=== PATIENT | female | born 1935 | race Caucasian/White ===

== ENCOUNTER → 2016-12-14 | Outpatient (CLI) | payer MEDICARE, OTHER ==
[~2016-12-14] MED LIST: ALEVE220 MG PO; ASPIR-LOX325 MG PO; ASPIRIN 32325 MG/TAB PO; COLACE 100100 MG/CAP PO; CRESTOR40 MG PO; FOLIC ACID 11 MG/TA1 PO; HCTZ 25MG25 MG PO; HYDROCODONE PO; IRON325 M1 PO; LOPRESSOR 225 MG/TAB PO; METFORMIN HCL500 MG PO; MIRALAX PA17 GM/Dose PO; NEXIUM 40MG40 MG PO; NIFEDIPINE30 MG PO; PLAVIX 75MG TAB75 MG PO; PRAVACHOL 40MG40 MG PO; PRAVACHOL10 MG; PRAVACHOL10 MG PO; PRILOSEC10 MG PO; SYNTHROID0.15 MG PO; ZESTRIL2.5 MG PO
== END ==
LOC: COL.RAD 10:16
DX: N28.89 Other specified disorders of kidney and ureter (principal); K44.9 Diaphragmatic hernia without obstruction or gangrene

== ENCOUNTER → 2017-02-20 | Outpatient (CLI) | payer MEDICARE, OTHER | LOC: MC.RAD 13:16 | DX: Z12.31 Encounter for screening mammogram for malignant neoplasm of breast (principal) ==

== ENCOUNTER 2018-01-27 10:38 | Emergency (ER) | payer MEDICARE, OTHER ==
[~2018-01-27] VITALS: Ht 162.6 cm; Wt 65.8 kg
[~2018-01-27 10:38] MED LIST changes: -FOLIC ACID 11 MG/TA1 PO; +FOLIC ACID0.4 MG PO; -PRAVACHOL10 MG; +PRILOSEC 20MG20 MG PO; -PRILOSEC10 MG PO; +ZESTRIL 10MG10 MG PO; -ZESTRIL2.5 MG PO
[2018-01-27 10:45] VITALS: BP 118/50; TEMP 97.5
[2018-01-27 11:26] LABS: HEMATOCRIT 40.6 % (37.0-47.0); HEMOGLOBIN 13.4 g/dl (12.5-16.0); MEAN CELL VOLUME 89 fl (80.0-100.0); MEAN CORPUSCULAR HEMOGLOBIN 29 pg (27.0-31.0); MEAN CORPUSCULAR HGB CONC 33 g/dl (33.0-37.0); PLATELET COUNT 331 K/mm3 (130-400); RED BLOOD COUNT 4.57 M/mm3 (4.10-5.30); REDCELL DISTRIBUTION WIDTH-CV 13.1 % (11.5-14.5)
[2018-01-27 11:34] LABS: ALANINE AMINOTRANSFERASE 23 U/L (9-52); ALBUMIN 4.1 gm/dL (3.5-5.0); ALKALINE PHOSPHATASE 64 U/L (50-136); ANION GAP 12 mmol/L (7-16); AST,SGOT 27 U/L (15-37); BILIRUBIN,TOTAL 0.4 mg/dL (0.0-1.0); BLOOD UREA NITROGEN 49 mg/dL (7-17); C-REACTIVE PROTEIN 0.7 mg/dL (0.0-0.9); CALCIUM 9.5 mg/dL (8.4-10.2); CARBON DIOXIDE 24 mmol/L (22-30); CHLORIDE 98 mmol/L (98-107); CREATININE, serum 1.17 mg/dL (0.52-1.25); GLUCOSE 94 mg/dL (74-106); POTASSIUM 4.5 mmol/L (3.4-5.0); SODIUM 134 mmol/L (137-145); TOTAL PROTEIN 7.6 gm/dL (6.4-8.2)
[2018-01-27 11:35] LABS: CREATINE KINASE < 20 U/L (30-135)
[2018-01-27 11:35] LABS: COLLECTION METHOD CLEAN CATCH
[2018-01-27] MEDS ORDERED: SYNTHROID0.137 MG (11:39)
[2018-01-27] MEDS ORDERED: HCTZ12.5TAB PO (11:41)
[2018-01-27] MEDS ORDERED: TOPROL XL 25MG25 MG PO (11:42)
[2018-01-27] MEDS ORDERED: ASPIRIN 81M81 MG/TA2 PO (11:42)
[2018-01-27 11:43] LABS: PH 5 (5-8); URINE APPEARANCE Turbid; URINE BACTERIA Moderate /hpf; URINE BILIRUBIN Negative (NEGATIVE); URINE BLOOD Negative (NEGATIVE); URINE COLOR Yellow; URINE GLUCOSE Negative (NEGATIVE); URINE KETONE Negative (NEGATIVE); URINE LEUKOCYTE ESTERASE 3+ (NEGATIVE); URINE NITRATE Negative (NEGATIVE); URINE PROTEIN(semi-quant) Negative (NEGATIVE)
[2018-01-27] MEDS ORDERED: VITAMIN C500 MG PO (11:43)
[2018-01-27] MEDS ORDERED: FLOMAX 0.40.4 MG/CAP PO (11:45)
[2018-01-27 11:46] LABS: BAND 3 % (0-10); LYMPHOCYTE 18 % (20.0-51.0); NEUTROPHILS 72 % (42.0-75.2); PLATELET ESTIMATE NORMAL (NORMAL)
[2018-01-27 11:47] LABS: HYPOCHROMIA 1+
[2018-01-27] MEDS ORDERED: CEFTIN 250250 MG/TAB PO (11:57)
[2018-01-27 12:36] VITALS: PULSE 67
== END 2018-01-27 12:37 | disposition home or self-care (01) ==
LOC: COL.ER 10:38
PROVIDERS: Emergency Medicine
DX: N39.0 Urinary tract infection, site not specified (principal); E11.9 Type 2 diabetes mellitus without complications; I10 Essential (primary) hypertension; E78.00 Pure hypercholesterolemia, unspecified; Z79.84 Long term (current) use of oral hypoglycemic drugs; Z79.82 Long term (current) use of aspirin; Z79.02 Long term (current) use of antithrombotics/antiplatelets
CPT/HCPCS: J0696; J7030

== ENCOUNTER 2018-02-10 12:57 | Emergency (ER) | payer MEDICARE, OTHER ==
[~2018-02-10] VITALS: Ht 165.1 cm; Wt 61.5 kg
[~2018-02-10 12:57] MED LIST changes: +ASPIRIN 81M81 MG/TA2 PO; +CEFTIN 250250 MG/TAB PO; +FLOMAX 0.40.4 MG/CAP PO; +HCTZ12.5TAB PO; +SYNTHROID0.137 MG; +TOPROL XL 25MG25 MG PO; +VITAMIN C500 MG PO
[2018-02-10 13:03] VITALS: TEMP 97.6
[2018-02-10 14:08] LABS: COLLECTION METHOD CATHETER
[2018-02-10 14:09] LABS: BASO % 0.4 % (0.0-2.0); EOS # 0.1 (0.0-0.7); EOS % 0.9 % (0-4.0); GRAN # 6.1 (1.4-6.5); GRAN % 71.6 % (42.2-75.2); HEMATOCRIT 42.6 % (37.0-47.0); HEMOGLOBIN 14.1 g/dl (12.5-16.0); LYMPH # 1.3 (1.2-3.4); LYMPH % 14.7 % (20.0-51.0); MEAN CELL VOLUME 88 fl (80.0-100.0); MEAN CORPUSCULAR HEMOGLOBIN 29 pg (27.0-31.0); MEAN CORPUSCULAR HGB CONC 33 g/dl (33.0-37.0); MEAN PLATELET VOLUME 10.7 fl (7.4-10.4); MONO % 11.9 % (1.7-9.3); PLATELET COUNT 335 K/mm3 (130-400); RED BLOOD COUNT 4.82 M/mm3 (4.10-5.30); REDCELL DISTRIBUTION WIDTH-CV 13.1 % (11.5-14.5)
[2018-02-10 14:11] LABS: PROTHROMBIN TIME 11.5 SECONDS (9.7-12.8)
[2018-02-10 14:14] LABS: PH 5 (5-8); SQUAMOUS EPITHELIAL 0-2 /hpf; URINE APPEARANCE Clear; URINE BACTERIA None Seen /hpf; URINE BILIRUBIN Negative (NEGATIVE); URINE BLOOD Negative (NEGATIVE); URINE COLOR Yellow; URINE GLUCOSE Negative (NEGATIVE); URINE KETONE 1+ (NEGATIVE); URINE LEUKOCYTE ESTERASE Negative (NEGATIVE); URINE NITRATE Negative (NEGATIVE); URINE PROTEIN(semi-quant) Negative (NEGATIVE); URINE RBC 0-2 /hpf; URINE UROBILINOGEN Negative (NEGATIVE)
[2018-02-10 14:21] LABS: ALANINE AMINOTRANSFERASE 33 U/L (9-52); ALBUMIN 4.3 gm/dL (3.5-5.0); ALKALINE PHOSPHATASE 69 U/L (50-136); ANION GAP 17 mmol/L (7-16); AST,SGOT 40 U/L (15-37); BILIRUBIN,TOTAL 0.5 mg/dL (0.0-1.0); BLOOD UREA NITROGEN 82 mg/dL (7-17); CALCIUM 10.1 mg/dL (8.4-10.2); CARBON DIOXIDE 24 mmol/L (22-30); CHLORIDE 97 mmol/L (98-107); CREATININE, serum 1.33 mg/dL (0.52-1.25); GLUCOSE 91 mg/dL (74-106); LIPASE 864 U/L (23-300); POTASSIUM 4.9 mmol/L (3.4-5.0); SODIUM 138 mmol/L (137-145); TOTAL PROTEIN 7.9 gm/dL (6.4-8.2)
[2018-02-10 14:29] LABS: CREATINE KINASE < 20 U/L (30-135); TROPONIN-I 0.014 ng/mL (0.000-0.034)
[2018-02-10] MEDS ORDERED: CARAFATE 1GM1 G PO (16:37)
[2018-02-10] MEDS ORDERED: ZOFRAN ODT4 MG PO (16:37)
[2018-02-10 16:50] VITALS: BP 121/68; PULSE 70
== END 2018-02-10 16:50 | disposition home or self-care (01) ==
LOC: COL.ER 12:57
PROVIDERS: Emergency Medicine
DX: R11.0 Nausea (principal); I10 Essential (primary) hypertension; Z79.82 Long term (current) use of aspirin; Z95.5 Presence of coronary angioplasty implant and graft; Z90.49 Acquired absence of other specified parts of digestive tract; Z90.710 Acquired absence of both cervix and uterus; Z87.440 Personal history of urinary (tract) infections; Z96.643 Presence of artificial hip joint, bilateral; Z96.653 Presence of artificial knee joint, bilateral
CPT/HCPCS: J2405; J7030; Q9967